=== PATIENT | female | born 1950 | race Caucasian/White ===

== ENCOUNTER 2022-11-18 06:58 | Day surgery (SDC) | payer OTHER, MEDICARE ==
[2022-11-14 11:19] LABS: BASOPHILS # (AUTO) 0.1 X10'3 (0-0.2); BASOPHILS % (AUTO) 0.9 % (0-1); EOSINOPHILS # (AUTO) 0.1 X10'3 (0-0.9); EOSINOPHILS % (AUTO) 1.8 % (0-6); LYMPHOCYTES # (AUTO) 3.3 X10'3 (1.1-4.8); LYMPHOCYTES % (AUTO) 44.3 % (21-51); MEAN CORPUSCULAR HEMOGLOBIN 29.4 PG (27.0-31.0); MEAN CORPUSCULAR HGB CONC 33.3 g/dL (33.0-36.5); MEAN CORPUSCULAR VOLUME 88.1 FL (78-98); MONOCYTES # (AUTO) 0.5 X10'3 (0-0.9); MONOCYTES % (AUTO) 6.7 % (2-12); NEUTROPHILS # (AUTO) 3.5 X10'3 (1.8-7.7); NEUTROPHILS % (AUTO) 46.3 % (42-75); PRE OP HEMATOCRIT 41.9 % (35.0-45.0); PRE OP PLATELET COUNT 223 X10'3 (140-440); RED BLOOD COUNT 4.75 X10'6 (4.20-5.60); RED CELL DISTRIBUTION WIDTH 13.6 % (11.5-14.5)
[2022-11-14 11:34] LABS: PRE OP PROTIME 10.8 SECONDS (9.0-12.0)
[2022-11-14 12:08] LABS: ALBUMIN 3.8 G/DL (3.4-5.0); ALBUMIN/GLOBULIN RATIO 1.2 (1.1-1.5); ALKALINE PHOSPHATASE 59 IU/L (46-116); BLOOD UREA NITROGEN 15 MG/DL (7-18); BUN/CREATININE RATIO 21.7 (6.6-38.0); CALCIUM 9.2 MG/DL (8.5-10.1); CHLORIDE 104 MMOL/L (99-107); CREATININE 0.69 MG/DL (0.40-0.90); PRE OP ALT 23 U/L (30-65); PRE OP ANION GAP 8 (8-16); PRE OP AST 21 U/L (10-37); PRE OP BILIRUB, TOTAL 0.3 MG/DL (0.0-1.0); PRE OP GLUCOSE 96 MG/DL (70-104); PRE OP POTASSIUM 3.9 MMOL/L (3.4-5.1); PRE OP SODIUM 140 MMOL/L (135-145); TOTAL CARBON DIOXIDE 28.4 MMOL/L (24-32); TOTAL PROTEIN 7.1 G/DL (6.4-8.2); eGFR 84 ML/MIN
[2022-11-18] VITALS (9 sets, daily range): BP systolic 117–138; BP diastolic 63–81
[~2022-11-18] VITALS: Ht 165.1 cm; Wt 79.0 kg
[~2022-11-18 06:58] MED LIST: ALBU17AE26 PO; LEVO125T PO; LIOT5TAB10 PO; NAPR220T67 PO; albuterol 2.5 MG/3 ML nebule NEB ONE; ceFAZolin inj. 2,000 MG in dextrose 5%-water 100 ML IV ONE; ceFAZolin/D5W- 1GM premix 50 ML IV ONE; famotidine 20mg tablet PO ONE; ringers solution, lacted 1,000 ML IV SCH
[2022-11-18] MEDS ORDERED: LIDOcaine 1% (10mg/ml) 2ml vial ONE (07:40)
[2022-11-18] MEDS ORDERED: ondansetron/PF 4mg/2ml inj IV PRN (07:50)
[2022-11-18] MEDS ORDERED: proCHLORperazine 10 MG/2 ml inj IV PRN (07:50)
[2022-11-18] MEDS ORDERED: meperidine/PF 25mg/ml syringe IV PRN ×3 (07:50)
[2022-11-18] MEDS ORDERED: ringers solution, lacted 1,000 ML IV SCH (07:50)
[2022-11-18] MEDS ORDERED: LIDOcaine 1% 30ml preserv. free vial ONE (08:40)
[2022-11-18] MEDS ORDERED: BUPIVAcaine 0.5% inj/PF 30 ML ONE (08:40)
[2022-11-18] MEDS ORDERED: fentaNYL/PF 50MCG/1 ML 2ML syringe ONE (08:54)
[2022-11-18] MEDS ORDERED: sevoflurane 250ml liquid IH ONE (08:54)
[2022-11-18] MEDS ORDERED: midazolam 1 mg/ML 2ml injection ONE (08:54)
[2022-11-18] MEDS ORDERED: meperidine/PF 25mg/ml syringe ONE (09:12)
[2022-11-18] MEDS ORDERED: ondansetron/PF 4mg/2ml inj ONE (09:22)
[2022-11-18] MEDS ORDERED: propofol inj 20 ML IV ONE (09:22)
[2022-11-18] MEDS ORDERED: dexamethasone sod phosphate 4mg/ml inj. ONE (09:22)
[2022-11-18] MEDS ORDERED: BUPIVAcaine 0.5% inj/PF 30 ml vial IJ ONE (09:25)
--- NOTE | 2022-11-18 10:10 | NUR ---
Received from OR via , accompanied by Anesthesiologist and report given by Anesthesiolgist. PATIENT A&OX4, DENIES PAIN, V/S WNL, SCD ON , PIV 20G RUE, BREAST WRAP WITH GAUZE TO SURGICAL SITES CDI
--- NOTE | 2022-11-18 11:20 | NUR ---
PATIENT A&OX4, DENIES PAIN, V/S WNL, SCD OFF , PIV 20G RUE D/C, BREAST WRAP WITH GAUZE TO SURGICAL SITES CDI. I HAVE REVIEWED D/C INSTRUCTIONS WITH PATIENT AND THEY HAVE VERBALIZED UNDERSTANDING OF INSTRUCTIONS. PATIENT D/C HOME WITH ALL BELONGINGS AND FAMILY GAVE TRANSPORT
== END 2022-11-18 11:20 | disposition home or self-care (01) ==
LOC: PAS 06:58
PROVIDERS: ATTEND Surgery
DX: D05.12 Intraductal carcinoma in situ of left breast (principal); E03.9 Hypothyroidism, unspecified; M19.90 Unspecified osteoarthritis, unspecified site; D64.9 Anemia, unspecified; E04.9 Nontoxic goiter, unspecified; J45.909 Unspecified asthma, uncomplicated; G47.30 Sleep apnea, unspecified; F32.A Depression, unspecified; Z87.01 Personal history of pneumonia (recurrent); Z87.891 Personal history of nicotine dependence; Z72.89 Other problems related to lifestyle; Z88.2 Allergy status to sulfonamides; Z88.5 Allergy status to narcotic agent; Z79.899 Other long term (current) drug therapy; Z90.710 Acquired absence of both cervix and uterus; Z98.890 Other specified postprocedural states; Z85.42 Personal history of malignant neoplasm of other parts of uterus; Z87.440 Personal history of urinary (tract) infections; Z79.01 Long term (current) use of anticoagulants
CPT/HCPCS: 19301; 36415; 80053; 82948; 85025; 85610; 85730; 93005; 94640; J0690; J1100; J2175; J2250; J2405; J2704; J3010; J3490; J7030; J7060; J7120; S0020; Z7506; Z7508; Z7512; A4618; A6449; A7000